=== PATIENT | female | born 1965 | race Caucasian/White ===

== ENCOUNTER → 2022-08-19 15:41 | Outpatient (CLI) | payer OTHER, SELFPAY | PROVIDERS: Referring Provider Internal Medicine; Visit Provider Internal Medicine | DX: Z23 Encounter for immunization (principal) | CPT/HCPCS: 90471; 90686 ==

== ENCOUNTER → 2022-12-15 15:16 | Outpatient (CLI) | payer OTHER, SELFPAY ==
--- NOTE | 2022-12-15 | DI.MG.S_ITS ---
BILATERAL DIGITAL SCREENING MAMMOGRAM 3D/2D WITH CAD: 12/15/2022 CLINICAL: Family history of breast cancer. Routine screening. No prior exams were available for comparison. Both breasts are heterogeneously dense, which may obscure small masses (category c / 51-75% glandular tissue). Current study was also evaluated with a Computer Aided Detection (CAD) system. No significant masses, calcifications, or other findings are seen in either breast. IMPRESSION: NEGATIVE There is no mammographic evidence of malignancy. A 1 year screening mammogram is recommended. Based on the Tyrer Cuzick model (a risk assessment model) the patient's lifetime risk is 7.6% and her 10 year risk is 2.3%. According to the ACR, ACS, and NCCN guidelines, an annual breast MRI exam along with mammogram is recommended if the patient's lifetime risk is 20% or greater. This exam was interpreted at Station ID: [id number]. NOTE: For mammograms, a report in lay terms will be sent to the patient. Approximately 15% of breast malignancies will not be visualized mammographically. In the management of a palpable breast mass, a negative mammogram must not discourage biopsy of a clinically suspicious lesion. Electronically Signed By: Wilmer cross/lakeshia:12/16/2022 13:52:12 letter sent: Normal Exam ACR BI-RADS Category 1: Negative 3341F
== END ==
PROVIDERS: Referring Provider Registered Nurse Diabetes Educator; Visit Provider Registered Nurse Diabetes Educator
DX: Z12.31 Encounter for screening mammogram for malignant neoplasm of breast (principal); Z80.3 Family history of malignant neoplasm of breast
CPT/HCPCS: 77063; 77067

== ENCOUNTER 2023-02-10 06:38 | Day surgery (SDC) | payer OTHER, SELFPAY ==
[2023-02-10 07:13] VITALS: BP 108/71; PULSE 68; RESP 16; TEMP 36.7; O2SAT 98; BMI 27.8
--- NOTE | 2023-02-10 07:29 | PM.PREOP ---
Pre-operative Note Interval Note History & Physical reviewed/Exam performed by Physician: Yes Changes to H&P: No
--- NOTE | 2023-02-10 07:30 | P.OP_ITS ---
Operative Date/Time/Diagnoses Date of procedure: 02/10/23 Time of procedure: 07:30 Pre-op diagnosis: Right hallux valgus with bunion, arthritis, metatarsalgia Post-op diagnosis: same Procedure & Clinicians Procedure: 1. Right first metatarsophalangeal joint arthrodesis (15249) 2. Right second metatarsal osteotomy (83865) Same procedure as scheduled: Yes Indications: 57 yo female with painful bunion and area of the ball of the foot. Conservative measures have failed to alleviate her pain and she wished to have surgical intervention at this time. We spoke of the risks, potential complications, expected outcomes. Consent was reviewed and signed, no contraindications to the procedure at this time. Surgeon: Gail Ricks Click Yes if Unassisted: Yes Anesthesia Type: General Operative Notes Closure Type: primary Specimen(s): none sent Prosthetic devices, grafts, tissues, transplants, or devices: [place] MTP 5 degree plate, 4.0 cannulated screw, 2.7 locking and non-locking screws (6), and 2.0 cannulated scew. Estimated Blood Loss (mL): 30 Blood products transfused: none Tourniquet time (min): 106 Procedure in detail: The patient was brought to the operating room and placed on the operating table in the supine position. A tourniquet was placed about the patient's Right thigh. After induction of general anesthesia the right foot and ankle were prepped and draped in the usual aseptic manner. The tourniquet was inflated. Incision was made over the dorsal aspect of the right 1st metatarsophalangeal joint. The incision was deepened through subcutaneous tissues being careful to identify and retract all vital neurovascular structures. All bleeders were cauterized and ligated necessary. The capsule was opened and I noted an enlarged medial eminence of the 1st metatarsal head. The joint showed about 1/3 loss of the articular cartilage on the 1st metatarsal head and less than that on the phalangeal base. Once the joint was mobilized, a guidewire was placed in the 1st metatarsal head and a reamer was used to resect the cartilage from the 1st metatarsal head and prepare the joint. The same procedure was performed to the proximal phalanx base. These guidewires were then removed. A saw was used to r esect the medial eminence enlargement. Subchondral drilling was performed to either side with the guidewire as well as some fish scaling using a small osteotome and currette. The area was irrigated with copious amount of normal sterile saline. Temporary fixation across the joint was placed with a guidewire and this was checked under C-arm to be in appropriate alignment. A plate was chosen and any further reduction of prominences dorsally was performed with a rasp and rongeur. Using the aid of fluoroscopy and the plate guide, the guide wire was used as cannulation for the drill for a lag screw from the distal medial to proximal lateral 1st metatarsal phalangeal joint. Confirmed appropriate alignment and compression in all 3 planes, a partially threaded screw was placed and the guidewire removed. Good strength and reduction of the former joint. Guide was removed and plate placement was verified ([place] five degree, medium) and with the aid of fluoroscopy a series of locking screws and a nonlocking screw were placed across the plate and aligned and fit the former joint well. This was verified on mini C-arm in 3 planes. The area is irrigated with copious amounts of normal sterile saline. Next attention was directed to the 2nd metatarsal head where an incision was made over the dorsal 2nd metatarsophalangeal joint. The incision was deepened through subcutaneous tissues being careful to identify and retract all vital neural and vascular structures. All bleeders were cauterized and ligated as necessary. Once the capsule was entered the metatarsal head and neck were exposed, I noted some spurring on the head of the second metatarsal with a little degenerative synovitic tissue in the joint. The cartilage for the most part was intact. A rongeur was used to resect some of the spurring at the head then a saw was used to create an osteotomy along the head of the dorsal tip of metatarsal. The head was and pushed proximally to a point where there was more of an equal parabola of length. This was temporarily fixated with a guidewire and then using standard AO technique, a 2-0 screw was placed across this. Guidewire was removed this was checked under C-arm and strength was good as well as compression. The tourniquet was deflated and prompt hyperemic response was seen to the foot. And no motion was noted at the 1st MTPJ. Subcutaneous closure was performed u sing Vicryl, including soft tissue reinforcement across second metatarsophalangeal joint, and nylon was used to close the skin. A sterile lightly compressive dressing was placed on the foot and she was placed in the postoperative boot. She was transferred to the PACU with vital signs stable and vascular status intact. Complications: none Post-operative Condition: stable Disposition: PACU Plan for aftercare: Following a period of postoperative monitoring, the patient will be discharged to home on written and oral postoperative instructions including keeping the dressing dry and intact, no weight to the surgical foot , icing and elevating the foot when seated home. DVT prevention techniques have been reviewed. For the 1st postoperative visit the dressing will be changed and close to the 4th postoperative week we will get weight-bearing x-rays of the foot.
[2023-02-10] MEDS: CEFAZOLIN 2 GM/100 ML PREMIX 100 ML IV (08:05)
--- NOTE | 2023-02-10 08:18 | SUR.OPER ---
Supine on padded OR bed, head on pillow, arms secured on padded arm boards at <90 degrees abduction, legs uncrossed, safety belt at abdomen, tape over blanket over lower left leg. Gel bump under right flank
[2023-02-10] MEDS: BUPIVACAINE 0.25% (PF) VIAL 30 ML INJ (08:25)
[2023-02-10] MEDS: LACTATED RINGERS 1,000 ML 42 ML IV (10:13)
[2023-02-10 10:39] VITALS: BP 120/79; PULSE 71; RESP 12; TEMP 35.5; O2SAT 97
[2023-02-10 10:47] VITALS: BP 124/75; PULSE 64; RESP 11; RESP 14; O2SAT 98
[2023-02-10 10:56] VITALS: BP 135/80; PULSE 70; RESP 14; O2SAT 98
[2023-02-10] MEDS: HYDROCODONE/ACET 5/325 TABLET 1 TAB PO (11:17)
[2023-02-10] MEDS: ONDANSETRON 4 MG/2 ML INJ IV (11:17)
[2023-02-10 11:19] VITALS: BP 122/75; PULSE 64; RESP 15; O2SAT 98
== END 2023-02-10 11:27 | disposition home or self-care (01) ==
PROVIDERS: PCP Registered Nurse Diabetes Educator; Referring Provider Podiatrist; Visit Provider Podiatrist
PROC: (CPT 28750; principal; 2023-02-10 07:45)
DX: M20.11 Hallux valgus (acquired), right foot (principal); M19.071 Primary osteoarthritis, right ankle and foot; M77.51 Other enthesopathy of right foot and ankle; M20.41 Other hammer toe(s) (acquired), right foot; I10 Essential (primary) hypertension
CPT/HCPCS: 28750; 28308; J0690; J1100; J1885; J2250; J2405; J2704; J3010

== ENCOUNTER → 2023-03-16 14:56 | Outpatient (CLI) | payer OTHER, SELFPAY ==
[2023-03-16 16:26] LABS: Appearance Urine UA CLEAR; Bilirubin Urine UA NEGATIVE (NEGATIVE); Color Urine UA YELLOW; Glucose Urine UA NEGATIVE (Negative); Ketones Urine UA NEGATIVE (NEGATIVE); Leukocyte Esterase Urine UA NEGATIVE (NEGATIVE); Nitrite Urine UA NEGATIVE (Negative); Occult Blood Urine UA NEGATIVE (Negative); Protein Urine UA NEGATIVE (Negative); Specific Gravity Urine UA 1.025 (1.000-1.035); Urobilinogen Urine UA 0.2 E.U./dL (0.2)
[2023-03-16 16:26] LABS: TSH w/ Reflex to FT4 1.73 uIU/mL (0.47-4.68)
[2023-03-16 16:36] LABS: Bacteria Urine Occasional (0-1); Mucus Urine 1+ (Negative); RBC Urine None Seen (0-5/HPF); Squamous Epithelial Cell Urine 0-1 /HPF (0-5/HPF); WBC Urine 0-1/HPF (0-5/HPF); pH Urine UA 5.5 (4.5-8.0)
[2023-03-16 16:37] LABS: Culture Indicated Urine Cult Not Indicated
== END ==
PROVIDERS: PCP Registered Nurse Diabetes Educator; Referring Provider Registered Nurse Diabetes Educator; Visit Provider Registered Nurse Diabetes Educator
DX: R79.89 Other specified abnormal findings of blood chemistry (principal); N39.3 Stress incontinence (female) (male)
CPT/HCPCS: 36415; 81001; 84443

== ENCOUNTER → 2023-08-04 08:16 | Outpatient (CLI) | payer OTHER, SELFPAY ==
[2023-08-04 08:51] LABS: Add Manual Diff / Slide Review NO; Basophils Absolute Auto 100 /uL (0-100); Basophils Percent Auto 1.1 % (0-2); Eosinophils Absolute Auto 300 /uL (0-450); Eosinophils Percent Auto 5.1 % (2-4); Hematocrit 38.6 % (36-46); Hemoglobin 13.1 g/dL (12.0-16.0); Lymphocytes Absolute Auto 1600 /uL (1100-4500); Lymphocytes Percent Auto 30.3 % (25-40); Mean Corpuscular HGB Conc 33.8 % (30-36); Mean Corpuscular Hemoglobin 29.7 PG (26-34); Mean Corpuscular Volume 87.9 fL (80-100); Monocytes Absolute Auto 500 /uL (0-900); Monocytes Percent Auto 9.6 % (3-14); Neutrophils Absolute Auto 2800 /uL (1500-7000); Neutrophils Percent Auto 53.9 % (50-75); Platelet Count 261 X10^3/uL (150-400); Red Blood Cell Count 4.39 X10^6/uL (4.0-5.2); Red Cell Distribution Width 12.9 % (11.6-14.8); White Blood Cell Count 5.3 X10^3/uL (4.5-11.0)
[2023-08-04 09:05] LABS: HEMOLYSIS < 15 (0-50); Iron 105 ug/dL (37-170)
[2023-08-04 09:12] LABS: Alanine Aminotransferase 18 IU/L (<35); Albumin 4.1 g/dL (3.5-5.0); Albumin Globulin Ratio 1.5 (1.0-2.8); Alkaline Phosphatase 47 U/L (38-126); Aspartate Aminotransferase 21 IU/L (14-36); Bilirubin Total 0.6 mg/dL (0.2-1.3); Blood Urea Nitrogen 13 mg/dL (7-17); Calcium 9.5 mg/dL (8.4-10.2); Carbon Dioxide 26 mmol/L (22-32); Chloride 103 mmol/L (98-107); Cholesterol 218 mg/dL (140-199); Estimated Glomerular Filt Rate > 60 mL/min (>60); Globulin 2.8 g/dL (1.7-4.1); Glucose 84 mg/dL (70-100); HDL Cholesterol 83 mg/dL (40-60); HEMOLYSIS < 15 (0-50); LDL Cholesterol Calculated 122 mg/dL (<100); Potassium 4.5 mmol/L (3.4-5.1); Sodium 137 mmol/L (137-145); Total Protein 6.9 g/dL (6.3-8.2); Triglycerides 64 mg/dL (35-150)
[2023-08-04 09:16] LABS: Percent Iron Saturation 33 % (15-50); Total Iron Binding Capacity 317 ug/dL (265-497); Transferrin 228 mg/dL (206-381)
[2023-08-04 09:24] LABS: Vitamin D 25 Hydroxy (D3) 38.2 ng/mL (30.0-100.0)
[2023-08-04 09:42] LABS: Ferritin 25 ng/mL (11-264)
[2023-08-04 09:56] LABS: Vitamin B12 901 pg/mL (239-931)
[2023-08-04 10:38] LABS: Folate > 20.0 ng/mL (2.76-20.0)
[2023-08-10 07:10] LABS: Vitamin B1 138.1 nmol/L (66.5-200.0)
== END ==
PROVIDERS: PCP Registered Nurse Diabetes Educator; Referring Provider Nurse Practitioner Family; Visit Provider Nurse Practitioner Family
DX: Z98.84 Bariatric surgery status (principal); K90.9 Intestinal malabsorption, unspecified; E63.9 Nutritional deficiency, unspecified; E55.9 Vitamin D deficiency, unspecified
CPT/HCPCS: 36415; 80053; 80061; 82306; 82607; 82728; 82746; 83540; 83550; 84425; 85025

== ENCOUNTER → 2023-08-29 16:38 | Outpatient (CLI) | payer BC, OTHER, SELFPAY ==
[2023-08-29 17:24] LABS: Add Manual Diff / Slide Review NO; Basophils Absolute Auto 100 /uL (0-100); Basophils Percent Auto 1.2 % (0-2); Eosinophils Absolute Auto 300 /uL (0-450); Eosinophils Percent Auto 4.5 % (2-4); Hematocrit 39.8 % (36-46); Hemoglobin 13.7 g/dL (12.0-16.0); Lymphocytes Absolute Auto 2100 /uL (1100-4500); Lymphocytes Percent Auto 30.6 % (25-40); Mean Corpuscular HGB Conc 34.4 % (30-36); Mean Corpuscular Hemoglobin 30.2 PG (26-34); Mean Corpuscular Volume 87.8 fL (80-100); Monocytes Absolute Auto 500 /uL (0-900); Monocytes Percent Auto 7.7 % (3-14); Neutrophils Absolute Auto 3800 /uL (1500-7000); Platelet Count 274 X10^3/uL (150-400); Red Blood Cell Count 4.54 X10^6/uL (4.0-5.2); Red Cell Distribution Width 12.6 % (11.6-14.8); White Blood Cell Count 6.7 X10^3/uL (4.5-11.0)
== END ==
PROVIDERS: PCP Registered Nurse Diabetes Educator; Referring Provider Family Medicine; Visit Provider Family Medicine
DX: K62.5 Hemorrhage of anus and rectum (principal); Z98.890 Other specified postprocedural states; K59.00 Constipation, unspecified
CPT/HCPCS: 36415; 85025

== ENCOUNTER → 2023-09-05 16:25 | Outpatient (CLI) | payer BC, SELFPAY | PROVIDERS: PCP Registered Nurse Diabetes Educator; Referring Provider Family Medicine; Visit Provider Family Medicine | DX: Z23 Encounter for immunization (principal) | CPT/HCPCS: 90471; 90686 ==

== ENCOUNTER 2023-09-26 10:11 | Day surgery (SDC) | payer BC, SELFPAY ==
[2023-09-26 10:27] VITALS: BMI 29.4
[2023-09-26 10:32] VITALS: BP 108/73; PULSE 78; RESP 16; TEMP 36.6; O2SAT 97
[2023-09-26] MEDS: LACTATED RINGERS 1,000 ML 42 ML IV (10:44)
--- NOTE | 2023-09-26 11:44 | PM.HP.1 ---
History of Present Illness History of Present Illness Date Patient Seen: 09/26/23 Time Patient Seen: 11:44 [place] [facility] [place]: 58-year-old woman with a history of colorectal cancer 2018 here for screening colonoscopy. Reports a sigmoid colectomy 2018 at [place] [address] Benavides stage I. Last colonoscopy 2 years ago notable for a few polyps. Recently had a couple episodes of bright red blood per rectum no unintentional weight loss abdominal pain. [facility] Medical History Dyslipidemia History of colorectal cancer Wears glasses Hearing decreased Headache Chicken pox Rosacea (2006) Carpal tunnel syndrome (~2010) Ankle pain (~2012) Bipolar disorder (2008) Depression (2008) Anxiety (2008) Colon polyps (2018) Colorectal cancer (2018) Surgical History Anesthesia History of colon surgery (04/2018) Hx of bariatric surgery (09/2020) Hx of abdominoplasty (2007) Hx of bilateral breast reduction surgery (2007) Family History Father Cancer History of heart disease Hyperlipidemia Sister Cancer Grandfather Diabetes mellitus Hyperlipidemia Grandmother Hyperlipidemia Social History household members: spouse Smoking Status: Never smoker alcohol intake: current Meds Home Medications and Allergies Home Medications Medication Instructions Recorded Confirmed Type aripiprazole 5 mg tablet 5 mg PO DAILY 02/10/23 09/26/23 History bupropion HCl 150 mg 24 hr tablet, 150 mg PO QAM 02/10/23 09/26/23 History extended release lithium carbonate 450 mg 450 mg PO DAILY 02/10/23 09/26/23 History tablet,extended release trazodone 50 mg tablet 50 mg PO DAILY 02/10/23 09/26/23 History omeprazole 20 mg capsule,delayed 20 mg PO DAILY 03/16/23 09/26/23 History release sodium sul 1.479 gram-potas ch See Rx Instructions PO PER PKG DIR 08/29/23 09/26/23 Rx 0.188 gram-magnes sul 0.225 gram #24 tabs tablet (Sutab) semaglutide (weight loss) 0.5 0.5 mg SUBCUT QWEEK 09/20/23 09/26/23 History mg/0.5 mL subcutaneous pen injector Allergies Allergy/AdvReac Type Severity Reaction Status Date / Time adhesive AdvReac Unknown Rash Verified 09/26/23 10:26 lamotrigine AdvReac Unknown Rash Verified 09/26/23 10:26 nitrofurantoin AdvReac Unknown Rash Verified 09/26/23 10:26 Exam Vital Signs (past 8 hours): - 09/26/23 10:32 Temperature 97.8 F Pulse Rate 78 Respiratory Rate 16 Blood Pressure 108/73 Pulse Oximetry 97 Oxygen Delivery Method Room Air Oxygen Delivery Method Room Air Narrative Exam Narrative: General adult woman alert oriented no acute distress Chest nonlabored respiration Extremities warm well perfused Assessment & Plan Assessment and plan (1) History of colorectal cancer: Status: Acute Assessment & Plan narrative: The patient requires colorectal screening and colonoscopy is recommended. Technical details were discussed. Risks, benefits, alternatives explained. Risks including but not limited to myocardial infarction, aspiration, bleeding, pain, missed lesion, incomplete examination, need for further radiographic studies, colonic perforation, and need for major abdominal surgery were discussed. All questions were answered to their satisfaction, and they are in agreement with this plan.
--- NOTE | 2023-09-26 12:07 | P.OP.COLON_ITS ---
Operative Date/Time/Diagnoses Date of procedure: 09/26/23 Time of procedure: 12:07 Pre-op diagnosis: History of colon cancer Post-op diagnosis: same Procedure & Clinicians Study performed: Colonoscopy Same procedure as scheduled: Yes Indications: Colorectal screening History of colon cancer Surgeon: Ronaldo Carter Procedure Notes Procedure in detail: The history and physical was performed/updated and the patient is ASA class is 2. The procedure was discussed in detail with the patient. Potential risks complications including infection, bleeding, missed diagnosis, perforation, need for surgery, and were explained. Their questions were answered and informed consent was obtained. Patient was brought to the procedure room and placed standard monitoring equipment. The patient's vital signs were monitored continuously throughout the entire procedure. Prior to starting time-out was performed. The patient was placed in the left lateral recumbent position. Procedural sedation was administered by anesthesia. Examination began with a thorough inspection of the perianal area there was no evidence of fissures, fistulae, external hemorrhoids or cutaneous malignancy. The colonoscopy scope was then placed into the anal canal and was advanced to the cecum, which was identified by the ileocecal valve, the appendiceal orifice and the confluence of the taenia. The scope was then slowly withdrawn examining colon thoroughly in all directions, irrigating it of any residual stool. The scope was retroflexed within the rectum The patient tolerated the procedure well. They will be discharged once criteria are met. The prep was of good/excellent quality. The withdrawl time was 7 minutes. FINDINGS * Unremarkable colonoscopy. No masses polyps or inflammation. Surgically absent distal colon * Internal hemorrhoids grade 1 Specimen(s): none sent Impression: Normal colonoscopy Post-procedure Recommendations: Colonoscopy in 3 years Disposition: same day surgery
[2023-09-26 12:08] VITALS: BP 92/53; PULSE 73; RESP 18; TEMP 36.1; O2SAT 98
[2023-09-26 12:12] VITALS: BP 107/56; PULSE 79; RESP 18; O2SAT 98
[2023-09-26 12:19] VITALS: BP 110/79; PULSE 70; RESP 18; TEMP 36.2; O2SAT 100
[2023-09-26 12:22] VITALS: PULSE 76; RESP 18; TEMP 36.3; O2SAT 100
== END 2023-09-26 12:32 | disposition home or self-care (01) ==
PROVIDERS: PCP Registered Nurse Diabetes Educator; Referring Provider Surgery; Visit Provider Surgery
PROC: 0DJD8ZZ Inspection of Lower Intestinal Tract, Via Natural or Artificial Opening Endoscopic (ICD-10-PCS; CPT 45378; principal; 2023-09-26 11:30)
DX: Z12.11 Encounter for screening for malignant neoplasm of colon (principal); Z85.038 Personal history of other malignant neoplasm of large intestine; Z90.49 Acquired absence of other specified parts of digestive tract; K64.0 First degree hemorrhoids
CPT/HCPCS: 45378; J2405; J2704; J2765

== ENCOUNTER → 2023-09-27 07:50 | Outpatient (CLI) | payer BC, SELFPAY ==
[2023-09-27 10:08] LABS: Thyroid Stimulating Hormone 1.44 uIU/mL (0.47-4.68)
== END ==
PROVIDERS: PCP Registered Nurse Diabetes Educator; Referring Provider Registered Nurse Diabetes Educator; Visit Provider Registered Nurse Diabetes Educator
DX: R53.83 Other fatigue (principal)
CPT/HCPCS: 36415; 84439; 84443

== ENCOUNTER → 2023-12-30 09:55 | Outpatient (CLI) | payer BC, SELFPAY ==
--- NOTE | 2023-12-30 | DI.MG.S_ITS ---
BILATERAL DIGITAL SCREENING MAMMOGRAM 3D/2D WITH CAD: 12/30/2023 CLINICAL: Routine screening. Family history of breast cancer. Comparison is made to exam dated: 12/15/2022 mammogram - [facility]. There are scattered areas of fibroglandular density in both breasts (category b / 25%-50% glandular tissue). Current study was also evaluated with a Computer Aided Detection (CAD) system. No significant masses, calcifications, or other findings are seen in either breast. There has been no significant interval change. IMPRESSION: NEGATIVE There is no mammographic evidence of malignancy. A 1 year screening mammogram is recommended. Based on the Tyrer Cuzick model (a risk assessment model) the patient's lifetime risk is 5.0% and her 10 year risk is 1.6%. According to the ACR, ACS, and NCCN guidelines, an annual breast MRI exam along with mammogram is recommended if the patient's lifetime risk is 20% or greater. This exam was interpreted at Station ID: [id number]. NOTE: For mammograms, a report in lay terms will be sent to the patient. Approximately 15% of breast malignancies will not be visualized mammographically. In the management of a palpable breast mass, a negative mammogram must not discourage biopsy of a clinically suspicious lesion. Electronically Signed By: Wilmer cross/lakeshia:01/01/2024 09:08:56 letter sent: Normal Exam ACR BI-RADS Category 1: Negative 3341F
== END ==
LOC: MAMMO 09:56
PROVIDERS: PCP Registered Nurse Diabetes Educator; Referring Provider Registered Nurse Diabetes Educator; Visit Provider Registered Nurse Diabetes Educator
DX: Z12.31 Encounter for screening mammogram for malignant neoplasm of breast (principal); Z80.3 Family history of malignant neoplasm of breast; R92.323 Mammographic fibroglandular density, bilateral breasts
CPT/HCPCS: 77063; 77067

== ENCOUNTER → 2024-07-30 10:55 | Outpatient (CLI) | payer OTHER, BC, SELFPAY ==
[2024-07-30 12:25] LABS: Alanine Aminotransferase 13 IU/L (<35); Albumin 4.2 g/dL (3.5-5.0); Albumin Globulin Ratio 1.5 (1.0-2.8); Alkaline Phosphatase 53 U/L (38-126); Aspartate Aminotransferase 19 IU/L (14-36); BUN Creatinine Ratio 18.8 (6-22); Bilirubin Total 0.5 mg/dL (0.2-1.3); Blood Urea Nitrogen 12 mg/dL (7-17); Calcium 9.6 mg/dL (8.4-10.2); Carbon Dioxide 27 mmol/L (22-32); Chloride 101 mmol/L (98-107); Estimated Glomerular Filt Rate > 60 mL/min (>60); Globulin 2.8 g/dL (1.7-4.1); Glucose 82 mg/dL (70-100); HEMOLYSIS < 15 (0-50); Potassium 4.6 mmol/L (3.4-5.1); Sodium 134 mmol/L (137-145)
== END ==
PROVIDERS: PCP Registered Nurse Diabetes Educator; Referring Provider Nurse Practitioner Acute Care; Visit Provider Nurse Practitioner Acute Care
DX: E63.9 Nutritional deficiency, unspecified (principal); K90.9 Intestinal malabsorption, unspecified; Z98.84 Bariatric surgery status
CPT/HCPCS: 36415; 80053

== ENCOUNTER → 2024-12-06 07:00 | Outpatient (CLI) | payer OTHER, BC, SELFPAY ==
--- NOTE | 2024-12-06 07:01 | DI.US.S_ITS ---
PROCEDURE: US PELVIC COMPLETE INDICATIONS: PMB X 2 DAYS THAT OCCURRED 1 MONTH AGO. ESTROGEN X 2 MONTHS TECHNIQUE: Real-time scanning was performed of the pelvic organs, with image documentation. Additional endovaginal scanning was necessary due to incomplete visualization of the adnexal and endometrial structures by transabdominal scanning. COMPARISON: None. FINDINGS: Uterus: Anteverted positioning. 7.1 x 4.8 x 3.7 cm. Microcystic changes within the endometrium. Overall endometrium measures 3 mm, within normal limits. Within the cervix, there is a hyperechoic lesion measures 8 x 5 mm. Ovaries: Nonenlarged bilaterally. Other: No pathologic free abdominal or pelvic fluid. IMPRESSION: Endometrium is within normal limits for thickness. There are microcystic changes. Possible hyperechoic cervical lesion measuring 8 x 5 mm. In the setting of postmenopausal bleeding, consider further evaluation with direct visualization versus gynecologic MRI. Dictated by: Wilmer Plunkett M.D. on 12/06/2024 at 9:24 Approved by: Wilmer Plunkett M.D. on 12/06/2024 at 9:27
== END ==
LOC: US 07:01
PROVIDERS: PCP Registered Nurse Diabetes Educator; Referring Provider Registered Nurse Diabetes Educator; Visit Provider Registered Nurse Diabetes Educator
DX: N95.0 Postmenopausal bleeding (principal)
CPT/HCPCS: 76830; 76856

== ENCOUNTER → 2024-12-10 16:43 | Outpatient (CLI) | payer OTHER, BC, SELFPAY ==
--- NOTE | 2024-12-10 16:44 | DI.MRI.S_ITS ---
PROCEDURE: MR PELVIS WO/W CON INDICATIONS: further eval US findings (cervix), PMB TECHNIQUE: Coronal HASTE, sagittal breath-hold T2 FSE; axial T1 FSE with and without fat saturation through the pelvis. Optional long- and short-axis uterine nonbreath-hold T2 FSE through the uterus. Sagittal or axial dynamic VIBE during administration of contrast. Post-contrast axial or coronal VIBE/2-D FLASH with fat saturation from the iliac crests to the symphysis. Optional diffusion weighted imaging and ADC may be performed. COMPARISON: [facility], US, US PELVIC COMPLETE, 12/06/2024, 7:17. FINDINGS: Image quality: Excellent. Uterus: Within the endocervix, adherent to the left anterior wall, there is a T2 hypointense nodule measuring 4 x 5 mm which may correspond the sonographic finding. It demonstrates a T1 hypointensity and no definite enhancement postcontrast. The cervix has an otherwise normal appearance. The uterus is homogeneous and age-appropriate. No endometrial thickening or myometrial mass. Adnexa: There is prominent bowel peristalsis and motion artifact obscures fine detail in the anterior pelvis and adnexa. No obvious ovarian cyst or mass. Urinary system: Bladder wall is normal in thickness. Distal ureters are non distended. Urethra appears normal in morphology. Nodes and vessels: No pelvic or inguinal adenopathy by size criteria. Iliac vessels are normal in size. Bowel and peritoneum: No pathologic free pelvic fluid. Inferior colon and small bowel loops are normal in caliber. Soft tissues: Small fat containing left inguinal hernia. No findings of pelvic floor incompetence in the absence of provocation. Bones: Marrow demonstrates normal overall signal. IMPRESSION: Nonenhancing 5 mm endocervical nodule likely corresponds to the ultrasound finding. Benign etiologies are most likely such as debris, calcification, polyp, endocervical fibroid. Recommend direct visualization if not previously performed. Dictated by: Rabia Easton M.D. on 12/10/2024 at 17:04 Approved by: Rabia Easton M.D. on 12/10/2024 at 17:31
== END ==
PROVIDERS: PCP Registered Nurse Diabetes Educator; Referring Provider Registered Nurse Diabetes Educator; Visit Provider Registered Nurse Diabetes Educator
DX: N88.9 Noninflammatory disorder of cervix uteri, unspecified (principal); N95.0 Postmenopausal bleeding
CPT/HCPCS: 72197; A9579

== ENCOUNTER → 2025-02-08 09:51 | Outpatient (CLI) | payer OTHER, BC, SELFPAY ==
--- NOTE | 2025-02-08 09:52 | DI.MG.S_ITS ---
MM screening mammo BI: 02/08/2025. BI-RADS: 1 CLINICAL: 60-year old female for bilateral screening mammogram. Tyrer-Cuzick lifetime risk of 3.5%. No personal or first-degree family history of breast cancer. History of ovarian cancer in one first-degree relative. The patient is status-post reduction mammoplasty. PRIOR EXAMS 12/30/2023, 12/15/2022, 12/07/2021, 09/15/2020. MAMMOGRAPHY TECHNIQUE: 2D and 3D (tomosynthesis) digital mammographic views obtained, with additional images as needed for full coverage. Current study was also evaluated with a Computer Aided Detection (CAD) system. DENSITY B. There are scattered areas of fibroglandular density. MAMMOGRAPHY FINDINGS Bilateral: No suspicious mass, asymmetry, microcalcification, or other abnormality seen. IMPRESSION: * No evidence of malignancy. RECOMMENDATIONS Bilateral * Annual screening mammography. OVERALL ASSESSMENT CATEGORY BI-RADS-1: Negative. The [employer] recommends annual screening mammography beginning at age 40 for women with average risk of breast cancer. ELECTRONICALLY SIGNED: Joy Murrell M.D. on 02/10/2025 at 09:15:54 AM PT Interpreting Station ID: [id number]
== END ==
PROVIDERS: PCP Registered Nurse Diabetes Educator; Referring Provider Registered Nurse Diabetes Educator; Visit Provider Registered Nurse Diabetes Educator
DX: Z12.31 Encounter for screening mammogram for malignant neoplasm of breast (principal); Z80.41 Family history of malignant neoplasm of ovary
CPT/HCPCS: 77063; 77067

== ENCOUNTER → 2025-05-16 09:44 | Outpatient (CLI) | payer OTHER, BC, SELFPAY ==
[2025-05-16 10:35] LABS: Add Manual Diff / Slide Review NO; Basophils Absolute Auto 100 /uL (0-100); Basophils Percent Auto 1.2 % (0-2); Eosinophils Absolute Auto 200 /uL (0-450); Eosinophils Percent Auto 4.7 % (2-4); Hematocrit 38.9 % (36-46); Hemoglobin 13.2 g/dL (12.0-16.0); Lymphocytes Absolute Auto 1400 /uL (1100-4500); Lymphocytes Percent Auto 29.8 % (25-40); Mean Corpuscular Hemoglobin 30.6 PG (26-34); Mean Corpuscular Volume 89.9 fL (80-100); Monocytes Absolute Auto 400 /uL (0-900); Monocytes Percent Auto 7.8 % (3-14); Neutrophils Absolute Auto 2700 /uL (1500-7000); Neutrophils Percent Auto 56.5 % (50-75); Platelet Count 288 X10^3/uL (150-400); Red Blood Cell Count 4.33 X10^6/uL (4.0-5.2); White Blood Cell Count 4.9 X10^3/uL (4.5-11.0)
[2025-05-16 10:55] LABS: Estimated Glomerular Filt Rate > 60 mL/min (>60)
== END ==
PROVIDERS: PCP Registered Nurse Diabetes Educator; Referring Provider Podiatrist; Visit Provider Podiatrist
DX: Z01.812 Encounter for preprocedural laboratory examination (principal); R79.89 Other specified abnormal findings of blood chemistry
CPT/HCPCS: 36415; 82565; 85025

== ENCOUNTER → 2025-10-21 07:28 | Outpatient (CLI) | payer OTHER, BC, SELFPAY ==
[2025-10-21 08:32] LABS: Add Manual Diff / Slide Review NO; Hematocrit 40.4 % (36-46); Hemoglobin 13.7 g/dL (12.0-16.0); Lymphocytes Absolute Auto 1300 /uL (1100-4500); Mean Corpuscular HGB Conc 33.9 % (30-36); Mean Corpuscular Hemoglobin 29.8 PG (26-34); Mean Corpuscular Volume 87.9 fL (80-100); Platelet Count 258 X10^3/uL (150-400)
[2025-10-21 08:40] LABS: Hemoglobin A1C% w Est Avg Glu 4.8 % (4.0-6.0)
[2025-10-21 08:48] LABS: HEMOLYSIS < 15 (0-50); Iron 139 ug/dL (37-170)
[2025-10-21 08:53] LABS: Alanine Aminotransferase 15 IU/L (<35); Albumin 4.2 g/dL (3.5-5.0); Albumin Globulin Ratio 1.4 (1.0-2.8); Alkaline Phosphatase 46 U/L (38-126); Blood Urea Nitrogen 9 mg/dL (7-17); Calcium 9.6 mg/dL (8.4-10.2); Carbon Dioxide 29 mmol/L (22-32); Chloride 104 mmol/L (98-107); Cholesterol 229 mg/dL (140-199); Estimated Glomerular Filt Rate > 60 mL/min (>60); Globulin 2.9 g/dL (1.7-4.1); Glucose 88 mg/dL (70-99); HDL Cholesterol 90 mg/dL (40-60); HEMOLYSIS < 15 (0-50); Magnesium 1.9 mg/dL (1.6-2.3); Potassium 4.4 mmol/L (3.4-5.1); Sodium 139 mmol/L (137-145); Total Protein 7.1 g/dL (6.3-8.2); Triglycerides 72 mg/dL (35-150)
[2025-10-21 08:59] LABS: Percent Iron Saturation 51 % (15-50); Total Iron Binding Capacity 272 ug/dL (265-497); Transferrin 242 mg/dL (206-381)
[2025-10-21 09:06] LABS: Free T4, Direct Thyroxine 1.14 ng/dL (0.78-2.19)
[2025-10-21 09:19] LABS: Vitamin D 25 Hydroxy (D3) 25.8 ng/mL (30.0-100.0)
[2025-10-21 09:20] LABS: Thyroid Stimulating Hormone 2.92 uIU/mL (0.47-4.68)
[2025-10-21 09:25] LABS: Ferritin 50 ng/mL (11-264)
[2025-10-21 09:56] LABS: Folate 6.6 ng/mL (2.76-20.0); Vitamin B12 988 pg/mL (239-931)
== END ==
PROVIDERS: PCP Registered Nurse Diabetes Educator; Referring Provider Registered Nurse Diabetes Educator; Visit Provider Surgery
DX: E55.9 Vitamin D deficiency, unspecified (principal); F31.9 Bipolar disorder, unspecified; I10 Essential (primary) hypertension; K21.9 Gastro-esophageal reflux disease without esophagitis; K91.2 Postsurgical malabsorption, not elsewhere classified; M54.30 Sciatica, unspecified side; N95.8 Other specified menopausal and perimenopausal disorders; Z76.0 Encounter for issue of repeat prescription
CPT/HCPCS: 36415; 80053; 80061; 82306; 82607; 82728; 82746; 83036; 83525; 83540; 83550; 83704; 83735; 84207; 84425; 84439; 84443; 84590; 84630; 85025; 86140